=== PATIENT | male | born 1935 | race Caucasian/White ===

== ENCOUNTER 2017-07-02 20:34 | Emergency (ER) | payer OTHER ==
[2017-07-02 21:03] VITALS: BP 138/72; PULSE 96; TEMP 99.7; BMI 29.2
[2017-07-02] MEDS ORDERED: OSELTAMIVIR PHOSPHATE 75 MG CAPSULE PO ONE (21:47)
[2017-07-02 22:03] LABS: ARTERIAL BLD GAS O2 SATURATION 92.1 % (90-98.9); ARTERIAL BLOOD GAS BASE EXCESS 2.7 meq/l (-2-2); ARTERIAL BLOOD GAS PCO2 41.7 mmHg (35-45); ARTERIAL BLOOD GAS PO2 60.8 mmHg (68-100); ARTERIAL BLOOD GAS pH 7.43 (7.35-7.45); CARBOXYHEMOGLOBIN 1.5 gm% (0.5-2.0)
[2017-07-02 22:06] LABS: ALLENS TEST POSITIVE
[2017-07-02] MEDS ORDERED: OSELTAMIVIR PHOSPHATE 75 MG CAPSULE ONE (22:13)
[2017-07-02] MEDS ORDERED: ALBUTEROL SO4 2.5/IPRATROPIUM 0.5 INH SOL 3 ML VIAL.NEB. NEB ONE ×2 (22:29→22:36)
--- NOTE | 2017-07-02 22:32 | PDOC ---
History of Present Illness - General Chief Complaint: Cold Symptoms Stated Complaint: FLU SYMPTOMS Time Seen by Provider: 07/02/17 20:47 History Source: Patient Exam Limitations: No Limitations - History of Present Illness Initial Comments: 07/02/17 22:32 82M with history of prostate cancer presents to the Ed for shortness of breath, cough, sinus congestion, sore throat and generalized body aches. Comes in with who has similar symptoms. Son who lives with them was sick and diagnosed with the flu last week 07/02/17 22:35 07/02/17 22:36 Past History - Past Medical History Allergies/Adverse Reactions: Allergies Allergy/AdvReac Type Severity Reaction Status Date / Time No Known Allergies Allergy Verified 07/02/17 21:01 Home Medications: Ambulatory Orders Oseltamivir Phosphate [Tamiflu] 75 mg PO BID #10 capsule 07/02/17 - Suicide/Smoking/Psychosocial Hx Smoking History: Unknown if ever smoked Have you smoked in the past 12 months: No Information on smoking cessation initiated: No Hx Alcohol Use: No Drug/Substance Use Hx: No Review of Systems - Review of Systems Able to Perform ROS?: Yes Is the patient limited Irish proficient: No Constitutional: No: Symptoms Reported HEENTM: No: Symptoms Reported Respiratory: Yes: See HPI Cardiac (ROS): No: Symptoms Reported ABD/GI: No: Symptoms Reported : No: Symptoms Reported Musculoskeletal: No: Symptoms Reported Integumentary: No: Symptoms Reported Neurological: No: Symptoms reported All Other Systems: Reviewed and Negative *Physical Exam - Vital Signs Last Vital Signs Temp Pulse Resp BP Pulse Ox 99.7 F H 96 H 16 138/72 94 L 07/02/17 21:01 07/02/17 21:01 07/02/17 21:01 07/02/17 21:01 07/02/17 21:01 - Physical Exam General Appearance: Yes: Nourished, Appropriately Dressed. No: Apparent Distress HEENT: positive: EOMI, MAXINE, Normal ENT Inspection Neck: positive: Tender Respiratory/Chest: positive: Lungs Clear, Normal Breath Sounds. negative: Chest Tender, Respiratory Distress Cardiovascular: positive: Regular Rhythm, Regular Rate, S1, S2 Gastrointestinal/Abdominal: positive: Normal Bowel Sounds. negative: Tender, Flat Extremity: positive: Normal Capillary Refill Integumentary: positive: Normal Color, Dry, Warm Neurologic: positive: Fully Oriented, Alert, Normal Mood/Affect ED Treatment Course - LABORATORY CBC & Chemistry Diagram: 07/02/17 22:45 07/02/17 22:45 - ADDITIONAL ORDERS Additional order review: Laboratory Results 07/02/17 22:00 Puncture Site Right radial ABG pH 7.43 ABG pCO2 at Pt Temp 41.7 ABG pO2 at Pt Temp 60.8 L ABG HCO3 26.9 H ABG O2 Sat (Measured) 92.1 ABG O2 Content 16.3 ABG Base Excess 2.7 H Manuelito Test Positive Carboxyhemoglobin 1.5 Methemoglobin 0.7 Oxygen Flow Rate Room air 07/02/17 21:15 Influenza Types A,B Antigen (DAIANA) - Final Nasopharyngeal Swab - Final - RADIOLOGY Radiology Studies Ordered: Category Date Time Status CHEST X-RAY PORTABLE* [RAD] Stat Radiology 07/02/17 20:59 Taken - Medications Given in the ED: ED Medications Discontinued Medications Generic Name Dose Route Start Last Admin Trade Name Freq PRN Reason Stop Dose Admin Oseltamivir Phosphate 75 mg 07/02/17 21:47 07/02/17 22:21 Tamiflu - PO 07/02/17 21:48 75 mg ONCE ONE Administration Medical Decision Making - Medical Decision Making 07/02/17 23:49 Negative for flu but this is probably a false negative since is positive Treated with influenza with tamiflu and duoneb. 07/02/17 23:38 Patient pfelling better saturating in the low 90's 07/02/17 23:49 Will DC with tamiflu and recommendation to follow up. *DC/Admit/Observation/Transfer Diagnosis at time of Disposition: Influenza A virus present - Discharge Dispostion Disposition: HOME Condition at time of disposition: Fair Admit: No - Prescriptions Prescriptions: Oseltamivir Phosphate [Tamiflu] 75 mg PO BID #10 capsule - Referrals Referrals: Layo Loera MD [Primary Care Provider] - - Patient Instructions Printed Discharge Instructions: How to Avoid a Cold or Flu, Influenza Additional Instructions: Follow up with your primary care provider within 2-3 days, Come back to the ER for any new, worsening or concerning symptoms Print Language: GUAMANIAN - Post Discharge Activity
[2017-07-02] MEDS ORDERED: ACETAMINOPHEN 1000 MG/100 ML VIAL (NON FORMULARY) IVPB ONE (22:36)
--- NOTE | 2017-07-02 22:37 | PDOC ---
Attending Attestation - Resident Resident Name: Joseph Melendez - ED Attending Attestation I have performed the following: I have examined & evaluated the patient, The case was reviewed & discussed with the resident, I agree w/resident's findings & plan, Exceptions are as noted - HPI HPI: 07/02/17 22:35 82-year-old male with history of prostate CA presents with 1 day of fever/chills /cough. Son was recently diagnosed with influenza A, patient is here with who is also a patient with similar symptoms. No chest pain, no dyspnea. - Physicial Exam PE: 07/02/17 22:35 Low-grade fever, heart rate 96, O2 sat 94% on room air. Alert seated in stretcher Speaking full sentences Good air entry, some expiratory wheezing on the right, no prolonged expiration or focally decreased breath sounds - Medical Decision Making 07/02/17 22:36 Patient seen and evaluated with the resident. I agree with the overall evaluation, assessment, and management with the following summary of visit: 82-year-old male with fever and cough that started today, positive influenza exposure. Low-grade fever with borderline O2 sat, but well-appearing. Labs sent ABG, influenza, chest x-ray Trial of nebulizers Reassess 07/02/17 23:53 Labs are within normal limits, Influenza negative but given his clinical presentation and known exposure we'll treat empirically for influenza. O2 sat 92 %, consistent with ABG. Despite this, patient is remarkably well-appearing and asymptomatic, ambulating comfortably in the emergency department without any dyspnea. On my preliminary review of chest x-ray, questionable left lingular density, but no effusions and otherwise clear lungs. Patient agrees with discharge plan, will treat empirically with azithromycin and Tamiflu, strict return precautions.
[2017-07-02] MEDS ORDERED: ACETAMINOPHEN 325 MG TABLET (FP) ONE (22:58)
[2017-07-02] MEDS ORDERED: ACETAMINOPHEN 500 MG TABLET (FP) PO ONE (23:02)
[2017-07-02 23:04] LABS: BASO % 0.4 % (0-2.0); EOS % 0.2 % (0-4.5); HEMATOCRIT 38.1 % (35.4-49); LYMPH % 6.8 % (8-40); MCH 33.2 pg (25.7-33.7); MCHC 34.2 g/dl (32.0-35.9); MEAN CELL VOLUME 96.9 fl (80-96); MEAN PLT VOLUME 8.3 fl (7.5-11.1); MONO % 6.3 % (3.8-10.2); NEUT % 86.3 % (42.8-82.8); PLATELET COUNT 193 K/MM3 (134-434); RBC 3.93 M/mm3 (4.00-5.60); RDW 13.2 % (11.9-15.9); WHITE BLOOD COUNT 7.1 K/mm3 (4.0-10.0)
[2017-07-02 23:28] LABS: ALBUMIN 4.2 g/dl (3.4-5.0); ANION GAP 5 (8-16); BILIRUBIN,TOTAL 0.6 mg/dL (0.2-1.0); BLOOD UREA NITROGEN 13 mg/dL (7-18); CALCIUM 8.9 mg/dL (8.5-10.1); CHLORIDE 100 mmol/L (98-107); CO2 31 mmol/L (21-32); CREATININE 0.7 mg/dL (0.7-1.3); GLUCOSE,RANDOM 136 mg/dL (74-106); POTASSIUM 3.9 mmol/L (3.5-5.1); SGOT/AST 27 U/L (15-37); SGPT/ALT 31 U/L (12-78); SODIUM 136 mmol/L (136-145)
[2017-07-02 23:30] LABS: ALK PHOS 101 U/L (45-117); TOT PROT 7.5 g/dl (6.4-8.2)
[2017-07-02] MEDS ORDERED: AZITHROMYCIN 500 MG TABLET PO ONE (23:54)
[2017-07-03] MEDS ORDERED: AZITHROMYCIN 500 MG TABLET ONE (00:23)
== END 2017-07-03 00:26 | disposition home or self-care (01) ==
LOC: JER 20:34
PROC: 3E0F7GC Introduction of Other Therapeutic Substance into Respiratory Tract, Via Natural or Artificial Opening (ICD-10-PCS; principal; 2017-07-02)
DX: J09.X2 Influenza due to identified novel influenza A virus with other respiratory manifestations (principal); Z85.46 Personal history of malignant neoplasm of prostate
CPT/HCPCS: 36415; 36600; 71045-TC; 80053; 82375; 82803; 83050; 85025; 87804; 94640; 99282-25

== ENCOUNTER 2024-07-28 16:35 | Observation (INO) | payer OTHER ==
[2024-07-28 17:31] VITALS: BMI 26.9
[2024-07-28] MEDS ORDERED: ACETAMINOPHEN INJECTION 100 ML ONE ×2 (18:42→22:30)
[2024-07-28] MEDS: SODIUM CHLORIDE 0.9% 500 ML INFUS.BAG IV ONE (18:53)
[2024-07-28] MEDS: ACETAMINOPHEN 1000 MG/100 ML BAG IVPB ONE ×2 (18:54→22:38)
[2024-07-28 19:10] LABS: BASO % 0.8 % (0-2.0); EOS % 1.8 % (0-4.5); HEMATOCRIT 33.6 % (35.4-49); HEMOGLOBIN 11.4 GM/dL (11.7-16.9); LYMPH % 30.6 % (8-40); MCH 33.5 pg (25.7-33.7); MEAN CELL VOLUME 98.6 fl (80-96); MEAN PLT VOLUME 9.5 fl (7.5-11.1); MONO % 8.7 % (3.8-10.2); NEUT % 58.1 % (42.8-82.8); PLATELET COUNT 131 10^3/uL (134-434); RBC 3.41 M/mm3 (4.00-5.60); RDW 13.9 % (11.9-15.9); WHITE BLOOD COUNT 9.4 K/mm3 (4.0-10.0)
[2024-07-28 19:28] LABS: CALCIUM 9.1 mg/dL (8.5-10.1); POTASSIUM 5.3 mmol/L (3.5-5.1)
[2024-07-28 19:29] LABS: ALBUMIN 3.8 g/dl (3.4-5.0); BLOOD UREA NITROGEN 19.9 mg/dL (7-18); MAGNESIUM 2.1 mg/dL (1.8-2.4)
[2024-07-28 19:32] LABS: CREATININE 0.7 mg/dL (0.55-1.3)
[2024-07-28 19:33] LABS: BILIRUBIN,TOTAL 0.6 mg/dL (0.2-1)
[2024-07-28 19:41] LABS: ACTIVATED PTT 25.6 SECONDS (25.2-36.5); INR 0.95 (0.83-1.09); PROTHROMBIN TIME (PATIENT) 10.4 SEC (9.7-13.0)
[2024-07-28 22:45] LABS: PH,URINE 6.5 (5.0-8.0); URINE APPEARANCE CLEAR; URINE BILIRUBIN NEGATIVE (NEGATIVE); URINE COLOR YELLOW; URINE GLUCOSE (UA) NEGATIVE (NEGATIVE); URINE KETONE TRACE (NEGATIVE); URINE LEUK ESTERASE NEGATIVE (NEGATIVE); URINE NITRITE NEGATIVE (NEGATIVE); URINE PROTEIN NEGATIVE (NEGATIVE)
[2024-07-29] MEDS: CARBIDOPA/LEVODOPA 25/100 TABLET (FP) PO SCH (00:05)
[2024-07-29] MEDS ORDERED: CARBIDOPA/LEVODOPA 25/100 TABLET (FP) ONE (00:16)
[2024-07-29 01:31] LABS: POTASSIUM 3.9 mmol/L (3.5-5.1)
[2024-07-29 01:32] LABS: CALCIUM 8.6 mg/dL (8.5-10.1)
[2024-07-29 01:33] LABS: BLOOD UREA NITROGEN 16.8 mg/dL (7-18)
[2024-07-29 01:36] LABS: CREATININE 0.7 mg/dL (0.55-1.3)
[2024-07-29] MEDS: LORazepam 2 MG/ML SDV VIAL IVPUSH ONE ×2 (04:36→23:09)
[2024-07-29] MEDS: LORazepam 2 MG/ML SDV VIAL IVPUSH STA (05:29)
[2024-07-29] MEDS: amLODIPine BESYLATE 5 MG TABLET (FP) PO ONE (06:59)
[2024-07-29 08:06] LABS: HEMATOCRIT 31.6 % (35.4-49); HEMOGLOBIN 10.5 GM/dL (11.7-16.9); MCH 33.2 pg (25.7-33.7); MCHC 33.3 g/dl (32.0-35.9); MEAN CELL VOLUME 99.5 fl (80-96); MEAN PLT VOLUME 9.2 fl (7.5-11.1); PLATELET COUNT 133 10^3/uL (134-434); RBC 3.17 M/mm3 (4.00-5.60); WHITE BLOOD COUNT 8.9 K/mm3 (4.0-10.0)
[2024-07-29 08:14] LABS: POTASSIUM 3.9 mmol/L (3.5-5.1)
[2024-07-29 08:17] LABS: BLOOD UREA NITROGEN 13.5 mg/dL (7-18); CALCIUM 8.9 mg/dL (8.5-10.1)
[2024-07-29 08:18] LABS: MAGNESIUM 1.9 mg/dL (1.8-2.4)
[2024-07-29 08:21] LABS: CREATININE 0.7 mg/dL (0.55-1.3); PHOSPHOROUS 2.5 mg/dL (2.5-4.9)
[2024-07-29] MEDS: ASPIRIN COATED 81 MG TABLET.EC PO SCH (09:27)
[2024-07-29] MEDS: LORazepam 2 MG/ML SDV VIAL IVPUSH PRN (20:52)
[2024-07-29] MEDS: ATORVASTATIN CA 20 MG TABLET (FP) PO SCH (21:49)
[2024-07-29] MEDS: HEPARIN NA (PORCINE) 5,000 UNITS/ML 1ML VIAL SQ SCH (21:49)
[2024-07-29] MEDS ORDERED: LORazepam 2 MG/ML SDV VIAL IVPUSH ONE (22:30)
[2024-07-30] MEDS: amLODIPine BESYLATE 5 MG TABLET (FP) PO ONE (06:53)
[2024-07-30 07:23] LABS: BASO % 1.4 % (0-2.0); EOS % 3.2 % (0-4.5); HEMATOCRIT 33.4 % (35.4-49); HEMOGLOBIN 11.5 GM/dL (11.7-16.9); LYMPH % 26.7 % (8-40); MCH 33.6 pg (25.7-33.7); MCHC 34.4 g/dl (32.0-35.9); MEAN CELL VOLUME 97.6 fl (80-96); MEAN PLT VOLUME 9.2 fl (7.5-11.1); MONO % 7.1 % (3.8-10.2); NEUT % 61.6 % (42.8-82.8); PLATELET COUNT 149 10^3/uL (134-434); RBC 3.42 M/mm3 (4.00-5.60); RDW 13.5 % (11.9-15.9); WHITE BLOOD COUNT 6.5 K/mm3 (4.0-10.0)
[2024-07-30 07:46] LABS: ALBUMIN 3.8 g/dl (3.4-5.0); BLOOD UREA NITROGEN 10.7 mg/dL (7-18); CALCIUM 9.1 mg/dL (8.5-10.1)
[2024-07-30 07:50] LABS: CREATININE 0.6 mg/dL (0.55-1.3)
[2024-07-30 07:51] LABS: BILIRUBIN,TOTAL 1.1 mg/dL (0.2-1); TOT PROT 6.6 g/dl (6.4-8.2)
[2024-07-30 15:54] LABS: URINE COLOR YELLOW
[2024-07-30 15:55] LABS: URINE APPEARANCE CLEAR; URINE BILIRUBIN NEGATIVE (NEGATIVE); URINE GLUCOSE (UA) NEGATIVE (NEGATIVE); URINE KETONE 15 mg/dl (NEGATIVE)
[2024-07-30 15:56] LABS: URINE LEUK ESTERASE NEGATIVE (NEGATIVE); URINE NITRITE NEGATIVE (NEGATIVE); URINE PROTEIN NEGATIVE (NEGATIVE)
[2024-07-31 01:07] VITALS: RESP 20
[2024-07-31 06:59] VITALS: PULSE 87
[2024-07-31 14:02] VITALS: BP 128/54; TEMP 97.2
== END 2024-07-31 16:48 | disposition home or self-care (01) ==
LOC: JER 16:35 → JERBED 21:39 → J4W 07-29 02:43
PROVIDERS: ADMIT Internal Medicine; ATTEND Family Medicine
PROC: 3E033NZ Introduction of Analgesics, Hypnotics, Sedatives into Peripheral Vein, Percutaneous Approach (ICD-10-PCS; principal; 2024-07-28)
PROC: 3E033NZ Introduction of Analgesics, Hypnotics, Sedatives into Peripheral Vein, Percutaneous Approach (ICD-10-PCS; 2024-07-28)
PROC: 3E023GC Introduction of Other Therapeutic Substance into Muscle, Percutaneous Approach (ICD-10-PCS; 2024-07-28)
PROC: 3E0337Z Introduction of Electrolytic and Water Balance Substance into Peripheral Vein, Percutaneous Approach (ICD-10-PCS; 2024-07-28)
DX: R55 Syncope and collapse (principal); G20.A1 Parkinson's disease without dyskinesia, without mention of fluctuations; F02.C0 Dementia in other diseases classified elsewhere, severe, without behavioral disturbance, psychotic disturbance, mood disturbance, and anxiety; Y93.89 Activity, other specified; R79.89 Other specified abnormal findings of blood chemistry; Y92.009 Unspecified place in unspecified non-institutional (private) residence as the place of occurrence of the external cause; W18.39XA Other fall on same level, initial encounter; R00.1 Bradycardia, unspecified; Z88.0 Allergy status to penicillin
CPT/HCPCS: 0241U-QW; 36415; 70450-TC; 71045-TC-FY; 72125-TC; 72170-TC-FY; 73502-TC-LT-FY; 73552-TC-LT-FY; 80048; 80053; 81003; 83605; 83735; 84100; 84443; 84484; 85025; 85027; 85379; 85610; 85730; 93005; 93010; 93306-TC; 93880-TC; 93970-TC; 96372; 96374; 96375; 96376; 97116-GP; 97162-GP; 99285-25; G0378; J0131; J1644